=== PATIENT | female | born 1930 | race Caucasian/White ===

== ENCOUNTER 2016-05-26 05:49 | Inpatient (IN) | payer MEDICAID, MEDICARE ==
[~2016-05-26] VITALS: Ht 142.2 cm; Wt 41.7 kg
[2016-05-26] VITALS (30 sets, daily range): BP systolic 89–149; BP diastolic 41–64
[~2016-05-26 05:49] MED LIST: ACET160S3 GT; ALBU2.5V38 IH; AMIN30LI4 GT; AMIO200T2 GT; ARGI1POW13 GT; BLOO-140 IN; CHOL100044 GT; FOLI0.8T23 GT; FOLI1TAB16 GT; HYDR-3326 GT; HYDR-4076 GT; INSU100I19 SQ; IPRA0.2S9 IH; MAG30ORA GT; METO5SOL2 GT; NUTR100037 GT; OMEP20CA10 GT; ONDA4SOL2 GT; SENN8.6T6 GT; ZINC220C8 GT
[2016-05-26 07:19] LABS: INR 1.02 (0.87-1.13)
[2016-05-26 07:25] LABS: TROPONIN I 0.087 ng/mL (0.00-0.056)
[2016-05-26 07:29] LABS: ALANINE AMINOTRANSFERASE 25 U/L (12-78); ALBUMIN 1.7 g/dL (3.4-5.0); ANION GAP 20 (5-14); ASPARTATE AMINOTRANSFERASE 17 U/L (15-37); BILIRUBIN,DIRECT 0.1 mg/dL (0.0-0.2); BILIRUBIN,TOTAL 0.3 mg/dL (0.2-1.0); CARBON DIOXIDE 20 mmol/L (21-32); CHLORIDE 99 mmol/L (98-107); CREATININE 2.9 mg/dL (0.6-1.3); INDIRECT BILIRUBIN 0.2 mg/dL (0.0-1.1); POTASSIUM 5.2 mmol/L (3.5-5.1); SODIUM SERUM 134 mmol/L (136-145); TOTAL PROTEIN, SERUM 5.9 g/dL (6.4-8.2)
[2016-05-26 07:32] LABS: LACTIC ACID 3.3 mmol/L (0.4-2.0)
[2016-05-26 07:39] LABS: GLUCOSE 720 mg/dL (74-106); UREA NITROGEN, BLOOD 124 mg/dL (7-18)
[2016-05-26] MEDS ORDERED: IV SET PRIMARY 1 EA INFUS.SET MC ONE (07:46)
[2016-05-26] MEDS ORDERED: IV NS 0.9% 1,000 ML ONE (07:46)
[2016-05-26] MEDS ORDERED: IV NS 0.9% 500 ML IV ONE (07:46)
[2016-05-26] MEDS ORDERED: LEVO50TA8 GT (07:48)
[2016-05-26] MEDS ORDERED: HEPA10009 SQ (07:48)
[2016-05-26] MEDS ORDERED: INSU100V3 SQ (07:48)
[2016-05-26 07:56] LABS: *LACTIC ACID REFLEX FLAG YES
[2016-05-26] MEDS ORDERED: IV NS 0.9% 1,000 ML BAG IV ONE (08:00)
[2016-05-26] MEDS ORDERED: CEFEPIME 1 GM in IV D5W 50 ML IV ONE (08:00)
[2016-05-26] MEDS: VANCOMYCIN 1 GM in IV D5W 250 ML IV ONE ×2 (08:00→10:42)
[2016-05-26] MEDS ORDERED: IV NS 0.9% 500 ML BAG IV ONE (08:00)
[2016-05-26 08:03] LABS: ABG BASE EXCESS -4.8 mmol/L; ABG HCO3 20.3 mmol/L; ABG PCO2 36.8 mmHg (35.0-45.0); ABG PH 7.359 (7.350-7.450); ABG TOTAL HEMOGLOBIN 4.2 G/dL (12.0-16.0); AaDO2 97.3 mmHg; O2Hb 93.1 % (94.0-97.0)
[2016-05-26 08:06] LABS: BASOPHILS # (AUTO) 0.1 /CMM (0.0-0.2); BASOPHILS % (AUTO) 0.3 % (0.0-2.0); DIFF TOTAL % 100 %; EOSINOPHILS % (AUTO) 0.1 % (0.0-6.0); LYMPHOCYTES # (AUTO) 1.3 /CMM (0.8-4.8); LYMPHOCYTES % (AUTO) 5.9 % (20.0-44.0); MEAN CORPUSCULAR HEMOGLOBIN 34 PG (26.0-33.0); MEAN CORPUSCULAR HGB CONC 31 g/dl (31.0-36.0); MEAN CORPUSCULAR VOLUME 110 fL (82-100); MONOCYTES # (AUTO) 1.8 /CMM (0.1-1.30); MONOCYTES % (AUTO) 8.2 % (2.0-12.0); NEUTROPHILS # (AUTO) 18.9 /CMM (1.8-8.9); NEUTROPHILS % (AUTO) 85.5 % (43.0-81.0); PLATELET COUNT (AUTO) 241 /CMM (150-450)
[2016-05-26] MEDS ORDERED: IV SET PRIMARY PUMP SET 1 EA INFUS.SET MC ONE ×4 (08:11→23:44)
[2016-05-26 08:15] LABS: WHITE BLOOD COUNT (AUTO) 22.1 K/uL (4.3-11.0)
[2016-05-26 08:24] LABS: HEMATOCRIT 12 % (33-45); HEMOGLOBIN 3.7 g/dL (11.5-14.8)
[2016-05-26 08:27] LABS: THYROID STIMULATING HORMONE 10.287 uIU/mL (0.358-3.74)
[2016-05-26] MEDS ORDERED: INSULIN REGULAR, HUMAN 100 UNIT in IV NS 0.9% 99 ML IV PRN ×2 (08:30)
[2016-05-26 08:33] LABS: BAND % (MANUAL) 6 % (0.0-5.0); LYMPHOCYTES % (MANUAL) 7 % (16-48); METAMYELOCYTES % 1 % (0-0); MYELOCYTES % 1 % (0-0); PLATELET ESTIMATE ADEQUATE
[2016-05-26 08:34] LABS: ANISOCYTOSIS 2+; HYPOCHROMASIA 1+; POLYCHROMASIA 1+
[2016-05-26] MEDS ORDERED: IV NS 0.9% 250 ML IV ONE ×2 (08:50→11:54)
[2016-05-26] MEDS ORDERED: BLOOD IV SET 1 EA INFUS.SET MC ONE ×2 (08:50→11:54)
[2016-05-26] MEDS ORDERED: IV NS 0.9% 1,000 ML IV PRN (10:56)
[2016-05-26] MEDS ORDERED: Z GUARD REMEDY 2 OZ OINT TP PRN (11:00)
[2016-05-26] MEDS ORDERED: ACETAMINOPHEN 325 MG TABLET PO PRN (11:00)
[2016-05-26] MEDS ORDERED: IPRATROPIUM NEB FS 0.5 MG/2.5 ML AMPUL.NEB IH PRN (11:00)
[2016-05-26] MEDS ORDERED: ONDANSETRON HCL/PF 4 MG/2 ML VIAL IVP PRN (11:00)
[2016-05-26] MEDS ORDERED: VANCOMYCIN 1 GM in IV D5W 250ml IV ONE (11:00)
[2016-05-26] MEDS ORDERED: SECONDARY IV SET 1 EA INFUS.SET MC ONE ×2 (11:54→14:11)
[2016-05-26] MEDS ORDERED: PIPERACILLIN /TAZOBACTAM 2.25 G in IV D5W 50 ML IV SCH (12:00)
[2016-05-26] MEDS: INSULIN REGULAR, HUMAN 100 UNIT in IV NS 0.9% 99 ML IV PRN ×4 (12:29→13:20)
[2016-05-26] MEDS ORDERED: FEE PK DOSING 1 MIN EA MC ONE (12:53)
[2016-05-26] MEDS: BLOOD SUGAR DIAGNOSTIC 1 EACH STRIP IN SCH ×11 (13:18→23:00)
[2016-05-26] MEDS: PIPERACILLIN /TAZOBACTAM 2.25 G in IV D5W 50 ML IV SCH ×2 (14:34→21:18)
[2016-05-26 15:14] LABS: BASOPHILS % (AUTO) 0.2 % (0.0-2.0); DIFF TOTAL % 100 %; EOSINOPHILS % (AUTO) 0.2 % (0.0-6.0); HEMATOCRIT 26 % (33-45); HEMOGLOBIN 8.8 g/dL (11.5-14.8); LYMPHOCYTES # (AUTO) 1.5 /CMM (0.8-4.8); LYMPHOCYTES % (AUTO) 7.5 % (20.0-44.0); MEAN CORPUSCULAR HEMOGLOBIN 31 PG (26.0-33.0); MEAN CORPUSCULAR HGB CONC 34 g/dl (31.0-36.0); MEAN CORPUSCULAR VOLUME 91 fL (82-100); MONOCYTES # (AUTO) 1.2 /CMM (0.1-1.30); MONOCYTES % (AUTO) 6.2 % (2.0-12.0); NEUTROPHILS % (AUTO) 85.9 % (43.0-81.0); PLATELET COUNT (AUTO) 145 /CMM (150-450); RED BLOOD CELL COUNT(AUTO) 2.86 MIL/uL (4.0-5.2); WHITE BLOOD COUNT (AUTO) 19.7 K/uL (4.3-11.0)
[2016-05-26] MEDS ORDERED: HYDROGEL DRESSING 90 GM TUBE TP PRN (15:30)
[2016-05-26 16:14] LABS: ANISOCYTOSIS 2+; BAND % (MANUAL) 7 % (0.0-5.0); EOSINOPHILS % (MANUAL) 2 % (0-4); LYMPHOCYTES % (MANUAL) 11 % (16-48); PLATELET ESTIMATE DECREASED
[2016-05-26] MEDS ORDERED: INSULIN DETEMIR 100 UNIT/ML CARTRIDGE SQ SCH (22:00)
[2016-05-26] MEDS ORDERED: IV D5/0.45 NACL 1,000 ML IV ONE (22:45)
[2016-05-26] MEDS: IV D5/0.45 NACL 1,000 ML IV PRN (23:02)
[2016-05-26 23:19] LABS: BILIRUBIN,TOTAL 0.5 mg/dL (0.2-1.0); CREATININE 1.5 mg/dL (0.6-1.3); POTASSIUM 3.8 mmol/L (3.5-5.1); TOTAL PROTEIN, SERUM 4.9 g/dL (6.4-8.2)
[2016-05-26 23:24] LABS: ALBUMIN 1.4 g/dL (3.4-5.0)
[2016-05-26] MEDS: ALBUMIN 25% 100 ML IV ONE ×2 (23:43→23:51)
[2016-05-27] VITALS (19 sets, daily range): BP systolic 90–139; BP diastolic 44–67
[2016-05-27] MEDS ORDERED: ALBUMIN 25% 25 GM in PREMIX 1 EA IV ONE ×2
[2016-05-27] MEDS: BLOOD SUGAR DIAGNOSTIC 1 EACH STRIP IN SCH ×6 (00:25→23:46)
[2016-05-27 00:41] LABS: CALCIUM, SERUM 7.1 mg/dL (8.5-10.1); CREATININE 1.5 mg/dL (0.6-1.3); POTASSIUM 3.7 mmol/L (3.5-5.1)
[2016-05-27 04:53] LABS: BASOPHILS # (AUTO) 0.1 /CMM (0.0-0.2); BASOPHILS % (AUTO) 0.3 % (0.0-2.0); DIFF TOTAL % 100 %; EOSINOPHILS # (AUTO) 0.7 /CMM (0.0-0.7); EOSINOPHILS % (AUTO) 4.4 % (0.0-6.0); HEMATOCRIT 23 % (33-45); HEMOGLOBIN 7.8 g/dL (11.5-14.8); LYMPHOCYTES # (AUTO) 1.2 /CMM (0.8-4.8); LYMPHOCYTES % (AUTO) 7.1 % (20.0-44.0); MEAN CORPUSCULAR HEMOGLOBIN 31 PG (26.0-33.0); MEAN CORPUSCULAR HGB CONC 34 g/dl (31.0-36.0); MEAN CORPUSCULAR VOLUME 92 fL (82-100); MONOCYTES # (AUTO) 0.9 /CMM (0.1-1.30); MONOCYTES % (AUTO) 5.7 % (2.0-12.0); NEUTROPHILS # (AUTO) 13.3 /CMM (1.8-8.9); NEUTROPHILS % (AUTO) 82.5 % (43.0-81.0); PLATELET COUNT (AUTO) 123 /CMM (150-450); RED BLOOD CELL COUNT(AUTO) 2.55 MIL/uL (4.0-5.2); WHITE BLOOD COUNT (AUTO) 16.1 K/uL (4.3-11.0)
[2016-05-27] MEDS ORDERED: BLOOD SUGAR DIAGNOSTIC 1 EACH STRIP IN SCH ×3 (05:00→12:00)
[2016-05-27 05:17] LABS: BILIRUBIN,TOTAL 0.6 mg/dL (0.2-1.0); CALCIUM, SERUM 7.3 mg/dL (8.5-10.1); CREATININE 1.7 mg/dL (0.6-1.3); PHOSPHORUS 2.8 mg/dL (2.5-4.9); POTASSIUM 3.8 mmol/L (3.5-5.1); TOTAL PROTEIN, SERUM 5.1 g/dL (6.4-8.2)
[2016-05-27] MEDS: PIPERACILLIN /TAZOBACTAM 2.25 G in IV D5W 50 ML IV SCH ×3 (05:27→21:02)
[2016-05-27] MEDS ORDERED: DEXTROSE 50%-WATER 50 ML DISP.SYRIN IV PRN (07:00)
[2016-05-27] MEDS ORDERED: INSULIN DETEMIR 100 UNIT/ML CARTRIDGE SQ SCH (09:30)
[2016-05-27] MEDS: AMIODARONE HCL 200 MG TABLET GT SCH (09:52)
[2016-05-27] MEDS: LEVOTHYROXINE SODIUM 50 MCG TABLET GT SCH (09:52)
[2016-05-27] MEDS: INSULIN DETEMIR 100 UNIT/ML CARTRIDGE SQ SCH ×2 (09:52→21:00)
[2016-05-27] MEDS: FOLIC ACID 1 MG TABLET GT SCH (09:53)
[2016-05-27] MEDS: IV D5/0.45 NACL 1,000 ML IV PRN (11:25)
[2016-05-27] MEDS: INSULIN REGULAR, HUMAN 100 UNIT/ML 3 ML VIAL SQ PRN ×2 (12:27→17:36)
[2016-05-27] MEDS ORDERED: VANCOMYCIN 500 MG in IV D5W 100 ML IV PRN (12:30)
[2016-05-27 16:43] LABS: IRON, SERUM 80 ug/dl (50-175); PERCENT SATURATION 41 % (14-33); TOTAL IRON BINDING CAPACITY 197 ug/dl (250-450)
[2016-05-27] MEDS: SUCRALFATE 1 G/10 ML UDC GT SCH ×2 (16:44→21:04)
[2016-05-27] MEDS: PANTOPRAZOLE 40 MG VIAL IV SCH (16:44)
[2016-05-28] VITALS: BP 119/53
[2016-05-28] MEDS: IV D5/0.45 NACL 1,000 ML IV PRN (03:01)
[2016-05-28 04:00] VITALS: BP_SYST 113; BP_SYST 156; BP_DIAS 44; BP_DIAS 80
[2016-05-28] MEDS: PIPERACILLIN /TAZOBACTAM 2.25 G in IV D5W 50 ML IV SCH ×3 (04:50→22:46)
[2016-05-28] MEDS: PANTOPRAZOLE 40 MG VIAL IV SCH ×2 (04:50→17:28)
[2016-05-28] MEDS: BLOOD SUGAR DIAGNOSTIC 1 EACH STRIP IN SCH ×4 (05:37→23:46)
[2016-05-28 06:20] LABS: DIFF TOTAL % 100 %; EOSINOPHILS # (AUTO) 0.5 /CMM (0.0-0.7); EOSINOPHILS % (AUTO) 3.2 % (0.0-6.0); HEMATOCRIT 24 % (33-45); LYMPHOCYTES # (AUTO) 0.5 /CMM (0.8-4.8); LYMPHOCYTES % (AUTO) 3.6 % (20.0-44.0); MEAN CORPUSCULAR HEMOGLOBIN 30 PG (26.0-33.0); MEAN CORPUSCULAR HGB CONC 33 g/dl (31.0-36.0); MEAN CORPUSCULAR VOLUME 92 fL (82-100); MONOCYTES # (AUTO) 0.9 /CMM (0.1-1.30); MONOCYTES % (AUTO) 6.3 % (2.0-12.0); NEUTROPHILS # (AUTO) 12.6 /CMM (1.8-8.9); NEUTROPHILS % (AUTO) 86.9 % (43.0-81.0); PLATELET COUNT (AUTO) 161 /CMM (150-450); RED BLOOD CELL COUNT(AUTO) 2.63 MIL/uL (4.0-5.2); WHITE BLOOD COUNT (AUTO) 14.5 K/uL (4.3-11.0)
[2016-05-28] MEDS: SUCRALFATE 1 G/10 ML UDC GT SCH ×4 (06:36→22:50)
[2016-05-28 08:00] VITALS: BP 119/57
[2016-05-28] MEDS: INSULIN DETEMIR 100 UNIT/ML CARTRIDGE SQ SCH ×2 (09:00→22:49)
[2016-05-28] MEDS ORDERED: DAKINS FULL STRENGTH (0.5%) 480 ML BOTTLE TOP SCH (09:00)
[2016-05-28] MEDS: FOLIC ACID 1 MG TABLET GT SCH (09:57)
[2016-05-28] MEDS: AMIODARONE HCL 200 MG TABLET GT SCH (09:57)
[2016-05-28] MEDS: LEVOTHYROXINE SODIUM 50 MCG TABLET GT SCH (09:58)
[2016-05-28 10:28] LABS: CALCIUM, SERUM 7.7 mg/dL (8.5-10.1); CREATININE 2.2 mg/dL (0.6-1.3); PHOSPHORUS 4.1 mg/dL (2.5-4.9); POTASSIUM 4.2 mmol/L (3.5-5.1)
[2016-05-28 12:00] VITALS: BP 118/58
[2016-05-28] MEDS: INSULIN REGULAR, HUMAN 100 UNIT/ML 3 ML VIAL SQ PRN ×3 (12:30→23:56)
[2016-05-28] MEDS ORDERED: EPOETIN ALFA (10,000 UNIT) 10,000 UNIT/ML VIAL SQ ONE (15:00)
[2016-05-28] MEDS ORDERED: VANCOMYCIN 1 GM in IV D5W 250 ML IV SCH (15:00)
[2016-05-28 16:00] VITALS: BP 130/57
[2016-05-28 20:00] VITALS: BP 127/68
[2016-05-29] VITALS (11 sets, daily range): BP systolic 116–148; BP diastolic 45–83
[2016-05-29] MEDS: PIPERACILLIN /TAZOBACTAM 2.25 G in IV D5W 50 ML IV SCH ×2 (05:05→12:57)
[2016-05-29] MEDS: PANTOPRAZOLE 40 MG VIAL IV SCH ×2 (05:24→17:09)
[2016-05-29] MEDS: BLOOD SUGAR DIAGNOSTIC 1 EACH STRIP IN SCH ×3 (06:00→17:09)
[2016-05-29 06:27] LABS: BASOPHILS % (AUTO) 0.1 % (0.0-2.0); DIFF TOTAL % 100 %; EOSINOPHILS # (AUTO) 0.5 /CMM (0.0-0.7); EOSINOPHILS % (AUTO) 4.6 % (0.0-6.0); HEMATOCRIT 25 % (33-45); LYMPHOCYTES # (AUTO) 0.6 /CMM (0.8-4.8); MEAN CORPUSCULAR HEMOGLOBIN 31 PG (26.0-33.0); MEAN CORPUSCULAR HGB CONC 33 g/dl (31.0-36.0); MEAN CORPUSCULAR VOLUME 94 fL (82-100); MONOCYTES # (AUTO) 0.7 /CMM (0.1-1.30); MONOCYTES % (AUTO) 6.8 % (2.0-12.0); NEUTROPHILS # (AUTO) 8.4 /CMM (1.8-8.9); NEUTROPHILS % (AUTO) 82.5 % (43.0-81.0); PLATELET COUNT (AUTO) 157 /CMM (150-450); RED BLOOD CELL COUNT(AUTO) 2.62 MIL/uL (4.0-5.2); WHITE BLOOD COUNT (AUTO) 10.1 K/uL (4.3-11.0)
[2016-05-29] MEDS: SUCRALFATE 1 G/10 ML UDC GT SCH ×4 (07:30→22:00)
[2016-05-29] MEDS: DAKINS QUARTER STRENGTH (0.125%) 480 ML BOTTLE TOP SCH (09:00)
[2016-05-29] MEDS: FOLIC ACID 1 MG TABLET GT SCH (09:00)
[2016-05-29] MEDS: INSULIN DETEMIR 100 UNIT/ML CARTRIDGE SQ SCH ×2 (09:00→21:00)
[2016-05-29] MEDS: AMIODARONE HCL 200 MG TABLET GT SCH (09:00)
[2016-05-29] MEDS: LEVOTHYROXINE SODIUM 50 MCG TABLET GT SCH (09:30)
[2016-05-29] MEDS ORDERED: EPOETIN ALFA (10,000 UNIT) 10,000 UNIT/ML VIAL SQ ONE (11:30)
[2016-05-29 13:01] LABS: CALCIUM, SERUM 7.7 mg/dL (8.5-10.1); CREATININE 2.7 mg/dL (0.6-1.3); POTASSIUM 3.9 mmol/L (3.5-5.1)
[2016-05-29] MEDS: IV D5/0.45 NACL 1,000 ML IV PRN (17:20)
[2016-05-30] VITALS: BP 130/64
[2016-05-30] MEDS: BLOOD SUGAR DIAGNOSTIC 1 EACH STRIP IN SCH ×4 (00:09→17:48)
[2016-05-30 04:00] VITALS: BP 128/70
[2016-05-30] MEDS: PANTOPRAZOLE 40 MG VIAL IV SCH ×2 (05:53→17:48)
[2016-05-30] MEDS: SUCRALFATE 1 G/10 ML UDC GT SCH ×3 (05:53→17:48)
[2016-05-30] MEDS: IV D5/0.45 NACL 1,000 ML IV PRN (06:07)
[2016-05-30 06:58] LABS: CALCIUM, SERUM 7.2 mg/dL (8.5-10.1); CREATININE 1.8 mg/dL (0.6-1.3)
[2016-05-30 07:58] LABS: POTASSIUM 2.7 mmol/L (3.5-5.1)
[2016-05-30 08:00] VITALS: BP 142/70
[2016-05-30] MEDS: AMIODARONE HCL 200 MG TABLET GT SCH (09:00)
[2016-05-30] MEDS: INSULIN DETEMIR 100 UNIT/ML CARTRIDGE SQ SCH (09:00)
[2016-05-30] MEDS: FOLIC ACID 1 MG TABLET GT SCH (09:00)
[2016-05-30] MEDS ORDERED: FEE PK DOSING 1 MIN EA MC ONE (09:22)
[2016-05-30] MEDS ORDERED: GENTAMICIN 80 MG in IV D5W 50 ML IV PRN (09:30)
[2016-05-30] MEDS ORDERED: GENTAMICIN IV PRN (09:30)
[2016-05-30] MEDS ORDERED: D5W IV PRN (09:30)
[2016-05-30] MEDS: LEVOTHYROXINE SODIUM 50 MCG TABLET GT SCH (09:30)
[2016-05-30] MEDS ORDERED: EPINEPHRINE (1:10,000) SYRINGE 1 MG/10 ML DISP.SYRIN ONE (10:47)
[2016-05-30] MEDS ORDERED: SUCRALFATE 1 G/10 ML UDC GT SCH (12:00)
[2016-05-30] MEDS ORDERED: SECONDARY IV SET 1 EA INFUS.SET MC ONE ×2 (12:08→13:05)
[2016-05-30] MEDS: DAKINS QUARTER STRENGTH (0.125%) 480 ML BOTTLE TOP SCH (12:11)
[2016-05-30] MEDS ORDERED: POTASSIUM CHLORIDE 20 MEQ TAB.PRT.SR PO ONE (12:30)
[2016-05-30 12:46] VITALS: BP 149/76
[2016-05-30] MEDS: POTASSIUM CL. PREMIX PERIPHER. 50 ML IV SCH ×4 (13:12→17:48)
[2016-05-30 16:32] VITALS: BP 138/66
== END 2016-05-30 20:00 | DRG 710 ==
LOC: ER 05:51 → ICU 10:23 → TELE 05-27 18:01
PROVIDERS: ADMIT Internal Medicine; ATTEND Internal Medicine
PROC: 5A1D60Z (ICD-10-PCS; principal; 2016-05-26)
PROC: 05H533Z Insertion of Infusion Device into Right Subclavian Vein, Percutaneous Approach (ICD-10-PCS; principal; 2016-05-26)
PROC: 30233N1 Transfusion of Nonautologous Red Blood Cells into Peripheral Vein, Percutaneous Approach (ICD-10-PCS; principal; 2016-05-26)
PROC: 0QBM0ZZ Excision of Left Tarsal, Open Approach (ICD-10-PCS; 2016-05-28)
PROC: 0KBF0ZZ Excision of Right Trunk Muscle, Open Approach (ICD-10-PCS; 2016-05-28)
PROC: 0KBG0ZZ Excision of Left Trunk Muscle, Open Approach (ICD-10-PCS; 2016-05-28)
PROC: 0W3P8ZZ Control Bleeding in Gastrointestinal Tract, Via Natural or Artificial Opening Endoscopic (ICD-10-PCS; 2016-05-30)
PROC: 3E0G8GC Introduction of Other Therapeutic Substance into Upper GI, Via Natural or Artificial Opening Endoscopic (ICD-10-PCS; 2016-05-30)
DX: A41.9 Sepsis, unspecified organism (principal); J96.01 Acute respiratory failure with hypoxia; I21.4 Non-ST elevation (NSTEMI) myocardial infarction; R65.21 Severe sepsis with septic shock; E43 Unspecified severe protein-calorie malnutrition; G93.41 Metabolic encephalopathy; I13.2 Hypertensive heart and chronic kidney disease with heart failure and with stage 5 chronic kidney disease, or end stage renal disease; L89.154 Pressure ulcer of sacral region, stage 4; G30.9 Alzheimer's disease, unspecified; F02.80 Dementia in other diseases classified elsewhere, unspecified severity, without behavioral disturbance, psychotic disturbance, mood disturbance, and anxiety; L89.893 Pressure ulcer of other site, stage 3; L89.624 Pressure ulcer of left heel, stage 4; E87.2 Acidosis; I50.42 Chronic combined systolic (congestive) and diastolic (congestive) heart failure; E11.22 Type 2 diabetes mellitus with diabetic chronic kidney disease; N18.6 End stage renal disease; Z99.2 Dependence on renal dialysis; D63.8 Anemia in other chronic diseases classified elsewhere; E03.9 Hypothyroidism, unspecified; E11.621 Type 2 diabetes mellitus with foot ulcer; E11.65 Type 2 diabetes mellitus with hyperglycemia; E83.39 Other disorders of phosphorus metabolism; E87.6 Hypokalemia; I25.10 Atherosclerotic heart disease of native coronary artery without angina pectoris; R13.10 Dysphagia, unspecified; R53.2 Functional quadriplegia; Z95.0 Presence of cardiac pacemaker; Z93.1 Gastrostomy status; M86.8X7 Other osteomyelitis, ankle and foot; E88.09 Other disorders of plasma-protein metabolism, not elsewhere classified; L97.519 Non-pressure chronic ulcer of other part of right foot with unspecified severity; L97.529 Non-pressure chronic ulcer of other part of left foot with unspecified severity; E87.1 Hypo-osmolality and hyponatremia; K26.4 Chronic or unspecified duodenal ulcer with hemorrhage; J45.909 Unspecified asthma, uncomplicated
CPT/HCPCS: 36415; 36600; 70450-TC; 71010-TC; 80048-TC; 80053-TC; 80061-TC; 80076-TC; 80202-TC; 82140-TC; 82272-TC; 82962-TC; 83540-TC; 83605-TC; 83735-TC; 84100-TC; 84443-TC; 84484-TC; 85025-TC; 85730-TC; 86850-TC; 86921-TC; 87040-TC; 87070-TC; 87081-TC; 87186-TC; 90935-TC; A4216; A4606; A6248; A6253; A6402; A6403; C9113; G6040-TC; J0171; J0692; J0885; J1580; J1815; J2543; J3370; J3480; J3490; J7030; J7040; J7050; J7060; P9016-BL; P9047; Z7610

== ENCOUNTER 2016-07-26 07:14 | Inpatient (IN) | payer MEDICAID, MEDICARE ==
[~2016-07-26] VITALS: Ht 157.5 cm; Wt 47.6 kg
[2016-07-26] VITALS (18 sets, daily range): BP systolic 97–137; BP diastolic 41–73
[~2016-07-26 07:14] MED LIST changes: -ACET160S3 GT; +ACET650S26 GT; +HEPA10009 SQ; +INSU100V3 SQ; +LEVO50TA8 GT; -ZINC220C8 GT
[2016-07-26] MEDS ORDERED: ONDANSETRON HCL/PF 4 MG/2 ML VIAL ONE (07:29)
[2016-07-26] MEDS ORDERED: ONDANSETRON HCL/PF 4 MG/2 ML VIAL IVP ONE (07:30)
[2016-07-26 07:54] LABS: BASOPHILS % (AUTO) 0.1 % (0.0-2.0); DIFF TOTAL % 100 %; EOSINOPHILS # (AUTO) 0.2 /CMM (0.0-0.7); EOSINOPHILS % (AUTO) 1.1 % (0.0-6.0); LYMPHOCYTES # (AUTO) 0.8 /CMM (0.8-4.8); LYMPHOCYTES % (AUTO) 3.7 % (20.0-44.0); MEAN CORPUSCULAR HEMOGLOBIN 29 PG (26.0-33.0); MEAN CORPUSCULAR HGB CONC 31 g/dl (31.0-36.0); MEAN CORPUSCULAR VOLUME 91 fL (82-100); MONOCYTES % (AUTO) 9.2 % (2.0-12.0); NEUTROPHILS # (AUTO) 18.7 /CMM (1.8-8.9); NEUTROPHILS % (AUTO) 85.9 % (43.0-81.0); PLATELET COUNT (AUTO) 257 /CMM (150-450); RED BLOOD CELL COUNT(AUTO) 2.07 MIL/uL (4.0-5.2); WHITE BLOOD COUNT (AUTO) 21.8 K/uL (4.3-11.0)
[2016-07-26 07:58] LABS: HEMATOCRIT 19 % (33-45); HEMOGLOBIN 5.9 g/dL (11.5-14.8)
[2016-07-26 08:06] LABS: LACTIC ACID 1.2 mmol/L (0.4-2.0)
[2016-07-26 08:07] LABS: TROPONIN I 0.036 ng/mL (0.00-0.056)
[2016-07-26 08:09] LABS: ALBUMIN 2.1 g/dL (3.4-5.0); BILIRUBIN,DIRECT 0.1 mg/dL (0.0-0.2); BILIRUBIN,TOTAL 0.2 mg/dL (0.2-1.0); CALCIUM, SERUM 8.7 mg/dL (8.5-10.1); CREATININE 2.8 mg/dL (0.6-1.3); INDIRECT BILIRUBIN 0.1 mg/dL (0.0-1.1); POTASSIUM 4.4 mmol/L (3.5-5.1)
[2016-07-26] MEDS ORDERED: CEFTRIAXONE 1GM BAG (ER ONLY) 50 ML IV ONE ×2 (08:12→08:30)
[2016-07-26] MEDS ORDERED: IV SET PRIMARY PUMP SET 1 EA INFUS.SET MC ONE ×2 (08:12→14:49)
[2016-07-26 08:55] LABS: BAND % (MANUAL) 1 % (0.0-5.0); LYMPHOCYTES % (MANUAL) 1 % (16-48)
[2016-07-26 08:56] LABS: ANISOCYTOSIS 1+; HYPOCHROMASIA 1+; PLATELET ESTIMATE ADEQUATE
[2016-07-26] MEDS ORDERED: AMIN887L GT (09:19)
[2016-07-26] MEDS ORDERED: ACET160E13 GT (09:19)
[2016-07-26] MEDS ORDERED: IV NS 0.9% 500 ML IV ONE (09:19)
[2016-07-26] MEDS ORDERED: BLOOD IV SET 1 EA INFUS.SET MC ONE ×2 (09:20→14:58)
[2016-07-26] MEDS ORDERED: NEPRO GT (09:33)
[2016-07-26 09:45] LABS: PROTHROMBIN TIME 11.4 SECS (9.5-12.7)
[2016-07-26 09:46] LABS: INR 1.05 (0.87-1.13)
[2016-07-26 09:51] LABS: PARTIAL THROMBOPLASTIN TIME > 170 SEC (23-34)
[2016-07-26] MEDS ORDERED: ACETAMINOPHEN 325 MG TABLET PO PRN (11:00)
[2016-07-26] MEDS ORDERED: PANTOPRAZOLE IV ONE (11:00)
[2016-07-26] MEDS ORDERED: PANTOPRAZOLE 80 MG in IV NS 0.9% 500 ML IV PRN (11:00)
[2016-07-26] MEDS ORDERED: IV NS 0.9% 1,000 ML BAG IV ONE (11:00)
[2016-07-26] MEDS ORDERED: D5W IV ONE (11:00)
[2016-07-26] MEDS ORDERED: MEROPENEM 1 G in IV NS 0.9% 100 ML IV SCH (11:00)
[2016-07-26] MEDS ORDERED: MORPHINE SULFATE INJ 2 MG/ML DISP.SYRIN IV PRN (11:00)
[2016-07-26] MEDS ORDERED: DEXTROSE 50%-WATER 50 ML DISP.SYRIN IV PRN (11:30)
[2016-07-26] MEDS ORDERED: DESMOPRESSIN 20 MCG in IV NS 0.9% 50 ML IV ONE (11:30)
[2016-07-26] MEDS ORDERED: EPOETIN ALFA (10,000 UNIT) 10,000 UNIT/ML VIAL IV ONE (11:30)
[2016-07-26] MEDS ORDERED: FEE PK DOSING 1 MIN EA MC ONE (11:36)
[2016-07-26] MEDS ORDERED: VANCOMYCIN 500 MG in IV D5W 100 ML IV PRN (12:00)
[2016-07-26] MEDS ORDERED: VANCOMYCIN 1 GM in IV D5W 250 ML IV ONE (12:00)
[2016-07-26] MEDS ORDERED: MEROPENEM 500 MG in IV NS 0.9% 50 ML IV SCH (12:00)
[2016-07-26] MEDS: BLOOD SUGAR DIAGNOSTIC 1 EACH STRIP IN SCH ×3 (12:36→23:27)
[2016-07-26] MEDS: INSULIN REGULAR, HUMAN 100 UNIT/ML 3 ML VIAL SQ PRN ×3 (12:41→23:41)
[2016-07-26] MEDS ORDERED: PANTOPRAZOLE 80 MG in IV NS 0.9% 100 ML IV PRN (13:00)
[2016-07-26] MEDS ORDERED: PLATELET IV SET 1 EA INFUS.SET MC ONE (14:21)
[2016-07-26] MEDS ORDERED: SECONDARY IV SET 1 EA INFUS.SET MC ONE ×2 (15:33→16:17)
[2016-07-26] MEDS: IV NS 0.9% 1,000 ML IV PRN (15:40)
[2016-07-26] MEDS ORDERED: IV NS 0.9% 250 ML IV ONE (15:54)
[2016-07-26] MEDS ORDERED: LIDOCAINE 1%-EPI 1:100,000 20 ML VIAL TP ONE (16:00)
[2016-07-26 16:38] LABS: ALBUMIN 2.3 g/dL (3.4-5.0); BILIRUBIN,DIRECT 0.2 mg/dL (0.0-0.2); BILIRUBIN,TOTAL 0.8 mg/dL (0.2-1.0); INDIRECT BILIRUBIN 0.6 mg/dL (0.0-1.1); TOTAL PROTEIN, SERUM 6.4 g/dL (6.4-8.2)
[2016-07-26 16:50] LABS: INR 0.97 (0.87-1.13); PROTHROMBIN TIME 10.5 SECS (9.5-12.7)
[2016-07-26] MEDS: NEOMY SULF/BACITRAC ZN/POLY 15 GM TUBE TP SCH (17:22)
[2016-07-26] MEDS: HYDROGEL DRESSING 90 GM TUBE TP SCH (17:22)
[2016-07-26] MEDS: MEROPENEM 500 MG in IV NS 0.9% 50 ML IV SCH (17:23)
[2016-07-26] MEDS: PANTOPRAZOLE 80 MG in IV NS 0.9% 500 ML IV PRN (18:59)
[2016-07-26 20:04] LABS: BASOPHILS # (AUTO) 0.1 /CMM (0.0-0.2); BASOPHILS % (AUTO) 0.5 % (0.0-2.0); DIFF TOTAL % 100 %; EOSINOPHILS # (AUTO) 0.2 /CMM (0.0-0.7); EOSINOPHILS % (AUTO) 1.4 % (0.0-6.0); HEMATOCRIT 23 % (33-45); HEMOGLOBIN 7.5 g/dL (11.5-14.8); LYMPHOCYTES # (AUTO) 0.8 /CMM (0.8-4.8); LYMPHOCYTES % (AUTO) 5.2 % (20.0-44.0); MEAN CORPUSCULAR HEMOGLOBIN 29 PG (26.0-33.0); MEAN CORPUSCULAR HGB CONC 33 g/dl (31.0-36.0); MEAN CORPUSCULAR VOLUME 87 fL (82-100); MONOCYTES % (AUTO) 12.6 % (2.0-12.0); NEUTROPHILS # (AUTO) 12.5 /CMM (1.8-8.9); NEUTROPHILS % (AUTO) 80.3 % (43.0-81.0); PLATELET COUNT (AUTO) 146 /CMM (150-450); RED BLOOD CELL COUNT(AUTO) 2.62 MIL/uL (4.0-5.2); WHITE BLOOD COUNT (AUTO) 15.6 K/uL (4.3-11.0)
[2016-07-27] VITALS (18 sets, daily range): BP systolic 114–153; BP diastolic 48–70
[2016-07-27 02:58] LABS: BASOPHILS # (AUTO) 0.1 /CMM (0.0-0.2); BASOPHILS % (AUTO) 0.8 % (0.0-2.0); DIFF TOTAL % 100 %; EOSINOPHILS # (AUTO) 0.3 /CMM (0.0-0.7); EOSINOPHILS % (AUTO) 2.3 % (0.0-6.0); HEMATOCRIT 21 % (33-45); LYMPHOCYTES # (AUTO) 0.9 /CMM (0.8-4.8); LYMPHOCYTES % (AUTO) 7.2 % (20.0-44.0); MEAN CORPUSCULAR HEMOGLOBIN 28 PG (26.0-33.0); MEAN CORPUSCULAR HGB CONC 32 g/dl (31.0-36.0); MEAN CORPUSCULAR VOLUME 88 fL (82-100); MONOCYTES # (AUTO) 1.5 /CMM (0.1-1.30); MONOCYTES % (AUTO) 11.7 % (2.0-12.0); PLATELET COUNT (AUTO) 141 /CMM (150-450); RED BLOOD CELL COUNT(AUTO) 2.42 MIL/uL (4.0-5.2); WHITE BLOOD COUNT (AUTO) 12.8 K/uL (4.3-11.0)
[2016-07-27 03:06] LABS: HEMOGLOBIN 6.8 g/dL (11.5-14.8)
[2016-07-27] MEDS: PANTOPRAZOLE 80 MG in IV NS 0.9% 500 ML IV PRN ×2 (04:53→18:19)
[2016-07-27 04:57] LABS: ANISOCYTOSIS 3+; CORRECTED WHITE BLOOD COUNT 12.2 K/uL (4.0-11.2); EOSINOPHILS % (MANUAL) 3 % (0-4); HYPOCHROMASIA 2+; LYMPHOCYTES % (MANUAL) 9 % (16-48); PLATELET ESTIMATE DECREASED
[2016-07-27] MEDS: BLOOD SUGAR DIAGNOSTIC 1 EACH STRIP IN SCH ×3 (06:31→17:29)
[2016-07-27] MEDS: INSULIN REGULAR, HUMAN 100 UNIT/ML 3 ML VIAL SQ PRN ×2 (06:33→17:33)
[2016-07-27 07:05] LABS: BASOPHILS # (AUTO) 0.1 /CMM (0.0-0.2); BASOPHILS % (AUTO) 0.5 % (0.0-2.0); DIFF TOTAL % 100 %; EOSINOPHILS # (AUTO) 0.4 /CMM (0.0-0.7); EOSINOPHILS % (AUTO) 2.8 % (0.0-6.0); HEMATOCRIT 21 % (33-45); LYMPHOCYTES # (AUTO) 0.9 /CMM (0.8-4.8); MEAN CORPUSCULAR HEMOGLOBIN 28 PG (26.0-33.0); MEAN CORPUSCULAR HGB CONC 32 g/dl (31.0-36.0); MEAN CORPUSCULAR VOLUME 88 fL (82-100); MONOCYTES # (AUTO) 1.7 /CMM (0.1-1.30); NEUTROPHILS % (AUTO) 79.7 % (43.0-81.0); PLATELET COUNT (AUTO) 136 /CMM (150-450)
[2016-07-27 07:51] LABS: HEMOGLOBIN 6.8 g/dL (11.5-14.8)
[2016-07-27 08:07] LABS: CALCIUM, SERUM 6.8 mg/dL (8.5-10.1); CREATININE 1.7 mg/dL (0.6-1.3); POTASSIUM 3.8 mmol/L (3.5-5.1)
[2016-07-27] MEDS ORDERED: IV NS 0.9% 250 ML IV ONE (08:47)
[2016-07-27] MEDS ORDERED: BLOOD IV SET 1 EA INFUS.SET MC ONE ×2 (08:47→13:07)
[2016-07-27] MEDS: NEOMY SULF/BACITRAC ZN/POLY 15 GM TUBE TP SCH (10:12)
[2016-07-27] MEDS: HYDROGEL DRESSING 90 GM TUBE TP SCH (10:13)
[2016-07-27] MEDS: IV NS 0.9% 1,000 ML IV PRN (10:36)
[2016-07-27 11:22] LABS: BAND % (MANUAL) 5 % (0.0-5.0)
[2016-07-27 12:23] LABS: THYROID STIMULATING HORMONE 13.04 uIU/mL (0.358-3.74); URIC ACID 2.7 mg/dL (2.6-7.2)
[2016-07-27 12:27] LABS: BILIRUBIN,DIRECT 0.1 mg/dL (0.0-0.2); BILIRUBIN,TOTAL 0.4 mg/dL (0.2-1.0)
[2016-07-27 12:28] LABS: INDIRECT BILIRUBIN 0.3 mg/dL (0.0-1.1)
[2016-07-27] MEDS: RENAL NOVASOURCE 1,000 ML BOTTLE GT PRN (15:02)
[2016-07-27] MEDS: LEVOTHYROXINE SODIUM 50 MCG TABLET GT SCH (15:02)
[2016-07-27] MEDS: MEROPENEM 500 MG in IV NS 0.9% 50 ML IV SCH (17:34)
[2016-07-28] VITALS (9 sets, daily range): BP systolic 129–193; BP diastolic 52–75
[2016-07-28] MEDS: BLOOD SUGAR DIAGNOSTIC 1 EACH STRIP IN SCH ×4 (00:10→17:53)
[2016-07-28] MEDS: INSULIN REGULAR, HUMAN 100 UNIT/ML 3 ML VIAL SQ PRN ×2 (00:16→05:35)
[2016-07-28] MEDS: PANTOPRAZOLE 80 MG in IV NS 0.9% 500 ML IV PRN ×2 (04:56→16:23)
[2016-07-28 07:17] LABS: BASOPHILS # (AUTO) 0.1 /CMM (0.0-0.2); BASOPHILS % (AUTO) 0.6 % (0.0-2.0); DIFF TOTAL % 100 %; EOSINOPHILS # (AUTO) 0.5 /CMM (0.0-0.7); EOSINOPHILS % (AUTO) 4.4 % (0.0-6.0); HEMATOCRIT 36 % (33-45); HEMOGLOBIN 11.6 g/dL (11.5-14.8); LYMPHOCYTES # (AUTO) 0.8 /CMM (0.8-4.8); LYMPHOCYTES % (AUTO) 6.2 % (20.0-44.0); MEAN CORPUSCULAR HEMOGLOBIN 29 PG (26.0-33.0); MEAN CORPUSCULAR HGB CONC 32 g/dl (31.0-36.0); MEAN CORPUSCULAR VOLUME 89 fL (82-100); MONOCYTES # (AUTO) 1.1 /CMM (0.1-1.30); MONOCYTES % (AUTO) 9.3 % (2.0-12.0); NEUTROPHILS # (AUTO) 9.6 /CMM (1.8-8.9); NEUTROPHILS % (AUTO) 79.5 % (43.0-81.0); PLATELET COUNT (AUTO) 133 /CMM (150-450); RED BLOOD CELL COUNT(AUTO) 4.03 MIL/uL (4.0-5.2); WHITE BLOOD COUNT (AUTO) 12.1 K/uL (4.3-11.0)
[2016-07-28 07:26] LABS: CALCIUM, SERUM 8.2 mg/dL (8.5-10.1); CREATININE 2.7 mg/dL (0.6-1.3); POTASSIUM 4.4 mmol/L (3.5-5.1)
[2016-07-28] MEDS: LEVOTHYROXINE SODIUM 50 MCG TABLET GT SCH (07:30)
[2016-07-28] MEDS: VIT B CMPLX 3/FA/VIT C/BIOTIN 1 TAB TABLET PO SCH (08:15)
[2016-07-28] MEDS: NEOMY SULF/BACITRAC ZN/POLY 15 GM TUBE TP SCH (08:43)
[2016-07-28] MEDS: HYDROGEL DRESSING 90 GM TUBE TP SCH (08:43)
[2016-07-28] MEDS: ONDANSETRON HCL/PF 4 MG/2 ML VIAL IVP PRN ×2 (11:20→21:02)
[2016-07-28] MEDS ORDERED: FUROSEMIDE 40 MG/4 ML VIAL IV ONE (12:00)
[2016-07-28] MEDS: CLONIDINE HCL 0.1 MG TABLET PO PRN (12:06)
[2016-07-28] MEDS ORDERED: Z GUARD REMEDY 2 OZ OINT TP PRN (12:30)
[2016-07-28] MEDS: Z GUARD REMEDY 2 OZ OINT TP SCH (12:51)
[2016-07-28] MEDS ORDERED: ANESTHESIA TRAY IN PYXIS 1 EA TRAY MC ONE ×2 (12:59→19:19)
[2016-07-28] MEDS: MEROPENEM 500 MG in IV NS 0.9% 50 ML IV SCH (15:00)
[2016-07-28] MEDS ORDERED: SECONDARY IV SET 1 EA INFUS.SET MC ONE (16:53)
[2016-07-28] MEDS: PANTOPRAZOLE 40 MG VIAL IV SCH (20:40)
[2016-07-28] MEDS: RENAL NOVASOURCE 1,000 ML BOTTLE GT PRN (23:00)
[2016-07-29] VITALS: BP 137/59
[2016-07-29] MEDS: INSULIN REGULAR, HUMAN 100 UNIT/ML 3 ML VIAL SQ PRN ×3 (00:05→23:59)
[2016-07-29] MEDS: BLOOD SUGAR DIAGNOSTIC 1 EACH STRIP IN SCH ×5 (00:06→23:58)
[2016-07-29 04:00] VITALS: BP 146/63
[2016-07-29 06:38] LABS: BASOPHILS % (AUTO) 0.3 % (0.0-2.0); DIFF TOTAL % 100 %; EOSINOPHILS # (AUTO) 0.4 /CMM (0.0-0.7); EOSINOPHILS % (AUTO) 4.2 % (0.0-6.0); HEMATOCRIT 33 % (33-45); HEMOGLOBIN 10.8 g/dL (11.5-14.8); LYMPHOCYTES # (AUTO) 0.5 /CMM (0.8-4.8); LYMPHOCYTES % (AUTO) 5.6 % (20.0-44.0); MEAN CORPUSCULAR HEMOGLOBIN 29 PG (26.0-33.0); MEAN CORPUSCULAR HGB CONC 32 g/dl (31.0-36.0); MEAN CORPUSCULAR VOLUME 89 fL (82-100); MONOCYTES # (AUTO) 0.9 /CMM (0.1-1.30); MONOCYTES % (AUTO) 8.9 % (2.0-12.0); NEUTROPHILS # (AUTO) 7.8 /CMM (1.8-8.9); PLATELET COUNT (AUTO) 115 /CMM (150-450); RED BLOOD CELL COUNT(AUTO) 3.76 MIL/uL (4.0-5.2); WHITE BLOOD COUNT (AUTO) 9.6 K/uL (4.3-11.0)
[2016-07-29 06:54] LABS: CALCIUM, SERUM 8.2 mg/dL (8.5-10.1); CREATININE 2.5 mg/dL (0.6-1.3); PHOSPHORUS 4.6 mg/dL (2.5-4.9)
[2016-07-29 08:00] VITALS: BP 132/67
[2016-07-29] MEDS: LEVOTHYROXINE SODIUM 50 MCG TABLET GT SCH (08:15)
[2016-07-29] MEDS: VIT B CMPLX 3/FA/VIT C/BIOTIN 1 TAB TABLET PO SCH (08:15)
[2016-07-29] MEDS: Z GUARD REMEDY 2 OZ OINT TP SCH (08:16)
[2016-07-29] MEDS: HYDROGEL DRESSING 90 GM TUBE TP SCH (08:16)
[2016-07-29] MEDS: NEOMY SULF/BACITRAC ZN/POLY 15 GM TUBE TP SCH (08:16)
[2016-07-29 12:00] VITALS: BP 128/63
[2016-07-29 12:35] LABS: BASOPHILS % (AUTO) 0.1 % (0.0-2.0); DIFF TOTAL % 100 %; EOSINOPHILS # (AUTO) 0.5 /CMM (0.0-0.7); EOSINOPHILS % (AUTO) 4.9 % (0.0-6.0); HEMATOCRIT 33 % (33-45); HEMOGLOBIN 10.7 g/dL (11.5-14.8); LYMPHOCYTES # (AUTO) 0.7 /CMM (0.8-4.8); LYMPHOCYTES % (AUTO) 6.7 % (20.0-44.0); MEAN CORPUSCULAR HEMOGLOBIN 28 PG (26.0-33.0); MEAN CORPUSCULAR HGB CONC 32 g/dl (31.0-36.0); MEAN CORPUSCULAR VOLUME 89 fL (82-100); MONOCYTES # (AUTO) 0.9 /CMM (0.1-1.30); MONOCYTES % (AUTO) 8.9 % (2.0-12.0); NEUTROPHILS % (AUTO) 79.4 % (43.0-81.0); PLATELET COUNT (AUTO) 123 /CMM (150-450); RED BLOOD CELL COUNT(AUTO) 3.77 MIL/uL (4.0-5.2)
[2016-07-29] MEDS ORDERED: SECONDARY IV SET 1 EA INFUS.SET MC ONE (15:59)
[2016-07-29 16:00] VITALS: BP 146/70
[2016-07-29] MEDS: DAKINS QUARTER STRENGTH (0.125%) 480 ML BOTTLE TOP SCH (16:05)
[2016-07-29] MEDS: PIPERACILLIN /TAZOBACTAM 2.25 G in IV D5W 50 ML IV SCH ×2 (16:07→21:00)
[2016-07-29 20:00] VITALS: BP 165/59
[2016-07-29] MEDS: PANTOPRAZOLE 40 MG VIAL IV SCH (21:00)
[2016-07-30] VITALS: BP 156/60
[2016-07-30 04:00] VITALS: BP 155/74
[2016-07-30] MEDS ORDERED: IV SET PRIMARY PUMP SET 1 EA INFUS.SET MC ONE (04:09)
[2016-07-30] MEDS ORDERED: IV NS 0.9% 250 ML IV ONE ×2 (04:09→04:30)
[2016-07-30] MEDS: BLOOD SUGAR DIAGNOSTIC 1 EACH STRIP IN SCH ×4 (05:43→23:28)
[2016-07-30 08:00] VITALS: BP 166/72
[2016-07-30] MEDS: VIT B CMPLX 3/FA/VIT C/BIOTIN 1 TAB TABLET PO SCH (08:18)
[2016-07-30] MEDS: LEVOTHYROXINE SODIUM 50 MCG TABLET GT SCH (08:18)
[2016-07-30] MEDS: DAKINS QUARTER STRENGTH (0.125%) 480 ML BOTTLE TOP SCH (08:21)
[2016-07-30] MEDS: Z GUARD REMEDY 2 OZ OINT TP SCH (08:22)
[2016-07-30] MEDS: NEOMY SULF/BACITRAC ZN/POLY 15 GM TUBE TP SCH (08:22)
[2016-07-30] MEDS: PIPERACILLIN /TAZOBACTAM 2.25 G in IV D5W 50 ML IV SCH ×2 (08:24→20:36)
[2016-07-30 10:44] LABS: CALCIUM, SERUM 8.3 mg/dL (8.5-10.1); CREATININE 3.4 mg/dL (0.6-1.3); PHOSPHORUS 6.6 mg/dL (2.5-4.9); POTASSIUM 4.7 mmol/L (3.5-5.1)
[2016-07-30 10:45] LABS: BASOPHILS # (AUTO) 0.1 /CMM (0.0-0.2); DIFF TOTAL % 100 %; EOSINOPHILS # (AUTO) 0.6 /CMM (0.0-0.7); EOSINOPHILS % (AUTO) 7.1 % (0.0-6.0); HEMATOCRIT 34 % (33-45); HEMOGLOBIN 10.8 g/dL (11.5-14.8); LYMPHOCYTES # (AUTO) 0.7 /CMM (0.8-4.8); MEAN CORPUSCULAR HEMOGLOBIN 28 PG (26.0-33.0); MEAN CORPUSCULAR HGB CONC 32 g/dl (31.0-36.0); MEAN CORPUSCULAR VOLUME 88 fL (82-100); MONOCYTES # (AUTO) 0.8 /CMM (0.1-1.30); MONOCYTES % (AUTO) 9.2 % (2.0-12.0); NEUTROPHILS # (AUTO) 6.8 /CMM (1.8-8.9); NEUTROPHILS % (AUTO) 74.7 % (43.0-81.0); PLATELET COUNT (AUTO) 133 /CMM (150-450); RED BLOOD CELL COUNT(AUTO) 3.81 MIL/uL (4.0-5.2); WHITE BLOOD COUNT (AUTO) 9.1 K/uL (4.3-11.0)
[2016-07-30] MEDS ORDERED: SECONDARY IV SET 1 EA INFUS.SET MC ONE (10:51)
[2016-07-30] MEDS: LINEZOLID RTU BAG 600 MG in PREMIX 1 EA IV SCH ×2 (12:56→22:32)
[2016-07-30] MEDS ORDERED: EPOETIN ALFA (10,000 UNIT) 10,000 UNIT/ML VIAL SQ ONE (13:00)
[2016-07-30 13:23] VITALS: BP 137/76
[2016-07-30 16:00] VITALS: BP 161/79
[2016-07-30] MEDS: INSULIN REGULAR, HUMAN 100 UNIT/ML 3 ML VIAL SQ PRN (17:22)
[2016-07-30 20:00] VITALS: BP 152/73
[2016-07-30] MEDS: PANTOPRAZOLE 40 MG VIAL IV SCH (20:36)
[2016-07-31] VITALS: BP 162/60
[2016-07-31 04:00] VITALS: BP_SYST 152; BP_SYST 170; BP_DIAS 70; BP_DIAS 73
[2016-07-31] MEDS ORDERED: IV NS 0.9% 250 ML IV ONE (04:42)
[2016-07-31] MEDS: CLONIDINE HCL 0.1 MG TABLET PO PRN ×2 (04:56→11:35)
[2016-07-31] MEDS: BLOOD SUGAR DIAGNOSTIC 1 EACH STRIP IN SCH ×3 (05:43→17:09)
[2016-07-31 07:15] LABS: BASOPHILS % (AUTO) 0.6 % (0.0-2.0); DIFF TOTAL % 100 %; EOSINOPHILS # (AUTO) 0.4 /CMM (0.0-0.7); EOSINOPHILS % (AUTO) 4.6 % (0.0-6.0); HEMATOCRIT 33 % (33-45); HEMOGLOBIN 10.5 g/dL (11.5-14.8); LYMPHOCYTES # (AUTO) 0.7 /CMM (0.8-4.8); LYMPHOCYTES % (AUTO) 9.1 % (20.0-44.0); MEAN CORPUSCULAR HEMOGLOBIN 28 PG (26.0-33.0); MEAN CORPUSCULAR HGB CONC 32 g/dl (31.0-36.0); MEAN CORPUSCULAR VOLUME 89 fL (82-100); MONOCYTES # (AUTO) 0.7 /CMM (0.1-1.30); MONOCYTES % (AUTO) 9.5 % (2.0-12.0); NEUTROPHILS # (AUTO) 5.9 /CMM (1.8-8.9); NEUTROPHILS % (AUTO) 76.2 % (43.0-81.0); PLATELET COUNT (AUTO) 100 /CMM (150-450); RED BLOOD CELL COUNT(AUTO) 3.69 MIL/uL (4.0-5.2); WHITE BLOOD COUNT (AUTO) 7.8 K/uL (4.3-11.0)
[2016-07-31 07:35] LABS: CALCIUM, SERUM 7.5 mg/dL (8.5-10.1); CREATININE 2.5 mg/dL (0.6-1.3); PHOSPHORUS 5.1 mg/dL (2.5-4.9); POTASSIUM 4.1 mmol/L (3.5-5.1)
[2016-07-31 08:00] VITALS: BP_SYST 159; BP_SYST 182; BP_DIAS 66; BP_DIAS 73
[2016-07-31] MEDS: LINEZOLID RTU BAG 600 MG in PREMIX 1 EA IV SCH ×2 (08:19→21:18)
[2016-07-31] MEDS: PIPERACILLIN /TAZOBACTAM 2.25 G in IV D5W 50 ML IV SCH ×2 (08:19→21:17)
[2016-07-31] MEDS: LEVOTHYROXINE SODIUM 50 MCG TABLET GT SCH (08:20)
[2016-07-31] MEDS: VIT B CMPLX 3/FA/VIT C/BIOTIN 1 TAB TABLET PO SCH (08:20)
[2016-07-31] MEDS: DAKINS QUARTER STRENGTH (0.125%) 480 ML BOTTLE TOP SCH (08:21)
[2016-07-31] MEDS: NEOMY SULF/BACITRAC ZN/POLY 15 GM TUBE TP SCH (08:21)
[2016-07-31] MEDS: Z GUARD REMEDY 2 OZ OINT TP SCH (08:21)
[2016-07-31] MEDS: INSULIN REGULAR, HUMAN 100 UNIT/ML 3 ML VIAL SQ PRN (11:28)
[2016-07-31 12:00] VITALS: BP_SYST 168; BP_SYST 171; BP_DIAS 57; BP_DIAS 70
[2016-07-31 16:00] VITALS: BP 153/70
[2016-07-31 20:00] VITALS: BP 177/71
[2016-07-31] MEDS: PANTOPRAZOLE 40 MG VIAL IV SCH (21:17)
[2016-08-01] VITALS (7 sets, daily range): BP systolic 163–184; BP diastolic 51–78
[2016-08-01] MEDS: INSULIN REGULAR, HUMAN 100 UNIT/ML 3 ML VIAL SQ PRN ×4 (01:00→15:14)
[2016-08-01] MEDS: BLOOD SUGAR DIAGNOSTIC 1 EACH STRIP IN SCH ×4 (01:00→17:18)
[2016-08-01 07:28] LABS: BASOPHILS % (AUTO) 0.6 % (0.0-2.0); DIFF TOTAL % 100 %; EOSINOPHILS # (AUTO) 0.5 /CMM (0.0-0.7); EOSINOPHILS % (AUTO) 7.2 % (0.0-6.0); HEMATOCRIT 33 % (33-45); HEMOGLOBIN 10.5 g/dL (11.5-14.8); LYMPHOCYTES # (AUTO) 0.9 /CMM (0.8-4.8); LYMPHOCYTES % (AUTO) 12.5 % (20.0-44.0); MEAN CORPUSCULAR HEMOGLOBIN 28 PG (26.0-33.0); MEAN CORPUSCULAR HGB CONC 32 g/dl (31.0-36.0); MEAN CORPUSCULAR VOLUME 88 fL (82-100); MONOCYTES # (AUTO) 0.6 /CMM (0.1-1.30); MONOCYTES % (AUTO) 8.8 % (2.0-12.0); NEUTROPHILS # (AUTO) 4.8 /CMM (1.8-8.9); NEUTROPHILS % (AUTO) 70.9 % (43.0-81.0); PLATELET COUNT (AUTO) 115 /CMM (150-450); RED BLOOD CELL COUNT(AUTO) 3.76 MIL/uL (4.0-5.2); WHITE BLOOD COUNT (AUTO) 6.8 K/uL (4.3-11.0)
[2016-08-01 07:41] LABS: CALCIUM, SERUM 7.8 mg/dL (8.5-10.1); POTASSIUM 4.7 mmol/L (3.5-5.1)
[2016-08-01 07:42] LABS: PHOSPHORUS 6.8 mg/dL (2.5-4.9)
[2016-08-01] MEDS: Z GUARD REMEDY 2 OZ OINT TP SCH (09:00)
[2016-08-01] MEDS: PIPERACILLIN /TAZOBACTAM 2.25 G in IV D5W 50 ML IV SCH ×2 (09:35→21:16)
[2016-08-01] MEDS: VIT B CMPLX 3/FA/VIT C/BIOTIN 1 TAB TABLET PO SCH (09:57)
[2016-08-01] MEDS: LEVOTHYROXINE SODIUM 50 MCG TABLET GT SCH (09:57)
[2016-08-01] MEDS: DAKINS QUARTER STRENGTH (0.125%) 480 ML BOTTLE TOP SCH (09:59)
[2016-08-01] MEDS: NEOMY SULF/BACITRAC ZN/POLY 15 GM TUBE TP SCH (10:00)
[2016-08-01] MEDS: LINEZOLID RTU BAG 600 MG in PREMIX 1 EA IV SCH (10:31)
[2016-08-01] MEDS ORDERED: LINE600T PO (12:16)
[2016-08-01] MEDS ORDERED: PIPE2.257 IV (12:16)
[2016-08-01] MEDS ORDERED: LINEZOLID 600 MG TABLET PO SCH ×2 (21:00)
[2016-08-01] MEDS: PANTOPRAZOLE 40 MG VIAL IV SCH (21:16)
[2016-08-01] MEDS: CLONIDINE HCL 0.1 MG TABLET PO PRN (21:17)
[2016-08-01] MEDS: ONDANSETRON HCL/PF 4 MG/2 ML VIAL IVP PRN (21:28)
== END 2016-08-02 00:15 | DRG 710 ==
LOC: ER 07:17 → TELE-TD 09:50 → TELE1 07-31 17:23 → MEDSG1 08-01 12:08
PROVIDERS: ADMIT Internal Medicine; ATTEND Internal Medicine
PROC: 5A1D60Z (ICD-10-PCS; principal; 2016-07-26)
PROC: 30233K1 Transfusion of Nonautologous Frozen Plasma into Peripheral Vein, Percutaneous Approach (ICD-10-PCS; principal; 2016-07-26)
PROC: 30233N1 Transfusion of Nonautologous Red Blood Cells into Peripheral Vein, Percutaneous Approach (ICD-10-PCS; principal; 2016-07-26)
PROC: 0KBN0ZZ Excision of Right Hip Muscle, Open Approach (ICD-10-PCS; 2016-07-27)
PROC: 0KBP0ZZ Excision of Left Hip Muscle, Open Approach (ICD-10-PCS; 2016-07-27)
PROC: 0W3P8ZZ Control Bleeding in Gastrointestinal Tract, Via Natural or Artificial Opening Endoscopic (ICD-10-PCS; 2016-07-28)
DX: A41.9 Sepsis, unspecified organism (principal); J69.0 Pneumonitis due to inhalation of food and vomit; J96.01 Acute respiratory failure with hypoxia; E43 Unspecified severe protein-calorie malnutrition; L89.154 Pressure ulcer of sacral region, stage 4; G93.41 Metabolic encephalopathy; I13.2 Hypertensive heart and chronic kidney disease with heart failure and with stage 5 chronic kidney disease, or end stage renal disease; L89.604 Pressure ulcer of unspecified heel, stage 4; R53.2 Functional quadriplegia; L89.93 Pressure ulcer of unspecified site, stage 3; N18.6 End stage renal disease; Z99.2 Dependence on renal dialysis; E11.22 Type 2 diabetes mellitus with diabetic chronic kidney disease; G30.9 Alzheimer's disease, unspecified; E11.621 Type 2 diabetes mellitus with foot ulcer; E03.9 Hypothyroidism, unspecified; D63.8 Anemia in other chronic diseases classified elsewhere; K92.1 Melena; I50.42 Chronic combined systolic (congestive) and diastolic (congestive) heart failure; R13.10 Dysphagia, unspecified; Z93.1 Gastrostomy status; L97.519 Non-pressure chronic ulcer of other part of right foot with unspecified severity; E87.0 Hyperosmolality and hypernatremia; Q27.33 Arteriovenous malformation of digestive system vessel; D68.9 Coagulation defect, unspecified; E11.622 Type 2 diabetes mellitus with other skin ulcer; F02.80 Dementia in other diseases classified elsewhere, unspecified severity, without behavioral disturbance, psychotic disturbance, mood disturbance, and anxiety; I16.0 Hypertensive urgency; I25.2 Old myocardial infarction; J98.11 Atelectasis; L97.529 Non-pressure chronic ulcer of other part of left foot with unspecified severity; Z74.01 Bed confinement status; Z68.1 Body mass index [BMI] 19.9 or less, adult
CPT/HCPCS: 36415; 71010-TC; 80048-TC; 80076-TC; 80202-TC; 82105; 82247-TC; 82248-TC; 82272-TC; 82306; 82962-TC; 83605-TC; 83615-TC; 83735-TC; 84100-TC; 84443-TC; 84484-TC; 84550-TC; 85025-TC; 85045-TC; 85610-TC; 85730-TC; 86850-TC; 86880-TC; 86921-TC; 87040-TC; 87070-TC; 87081-TC; 87186-TC; 90935-TC; 94799-TC; A4216; A4606; A6248; A6253; A6402; A6403; C9113; J0696; J0885; J1815; J1940; J2020; J2185; J2270; J2405; J2543; J2597; J3370; J3490; J7030; J7040; J7050; J7060; P9016-BL; P9017-BL; Z7610